=== PATIENT | female | born 1945 | race Caucasian/White ===

== ENCOUNTER 2021-06-20 12:37 | Observation (INO) | payer OTHER ==
[2021-06-20] VITALS (9 sets, daily range): BP systolic 102–179; BP diastolic 45–74
[~2021-06-20] VITALS: Ht 157.5 cm; Wt 69.0 kg
[~2021-06-20 12:37] MED LIST: TOBRAMYCIN0.3 % OP
--- NOTE | 2021-06-20 13:00 | NUR ---
PATIENT TO ROOM 9 AMBUALTORY BEDSIDE TRIAGE COMPLETED
--- NOTE | 2021-06-20 14:00 | NUR ---
Reassessment of patient completed. No distress noted.
[2021-06-20 14:06] LABS: HEMATOCRIT 41.8 % (37.0-47.0); HEMOGLOBIN 14.2 g/dl (12.0-16.0); IMMATURE GRANULOCYTES 0.2 % (0.0-5.0); MEAN CELL VOLUME 88.9 fL CALC (80.0-100.0); MEAN CORPUSCULAR HGB 30.2 pG CALC (26.0-32.0); NEUT# 4.31 thou/uL (2.00-7.15); RED BLOOD COUNT 4.7 mill/uL (4.20-5.60); RED CELL DISTRI WIDTH 12.9 % (11.5-15.5)
[2021-06-20 14:11] LABS: ALBUMIN 4.7 g/dL (3.2-5.0); ALKALINE PHOSPHATASE 66 u/l (38-126); ANION GAP 14 (6-22 (CALC)); BILIRUBIN, TOTAL 0.6 mg/dL (0.0-1.4); BUN 15 mg/dL (8-23); BUN/CREATININE RATIO 20 (12-20 (CALC)); CARBON DIOXIDE 29 mmol/l (22-30); CHLORIDE 97 mmol/l (95-108); CREATININE 0.8 mg/dL (0.5-1.0); GFR > 60 ML/MIN (>=60 (CALC)); GFR FOR AFR.AMER. > 60 ML/MIN (>=60 (CALC)); POTASSIUM 3.8 mmol/l (3.5-5.1); SGOT/AST 28 u/l (9-36); SODIUM 135 mmol/l (137-146); TOTAL PROTEIN 8.5 g/dL (6.3-8.2)
--- NOTE | 2021-06-20 15:00 | NUR ---
Reassessment of patient completed. No distress noted.
--- NOTE | 2021-06-20 16:00 | NUR ---
Reassessment of patient completed. No distress noted.
--- NOTE | 2021-06-20 17:15 | NUR ---
Reassessment of patient completed. No distress noted.
--- NOTE | 2021-06-20 18:22 | NUR ---
Reassessment of patient completed. No distress noted.
--- NOTE | 2021-06-20 19:00 | NUR ---
Admission Note Report Given to: Transported by: Wheelchair X Stretcher Transported with: X Nurse Transporter X Patent IV O2 X Automation And Controls Instructor Location: X ICU MS2
--- NOTE | 2021-06-20 19:08 | NUR ---
75 yr old white female admitted icu7 per stretcher from er. denies mccain. amb self to bed. bed weight obtained. telemetry monitor shows sinus rhythm hr 80. #20 rac saline lock. history obtained per pt. oriented to room. fall precautions initiated.
--- NOTE | 2021-06-20 21:30 | NUR ---
abdiel from the [employer] called this global technical writer. updated on pts condition.
[2021-06-21] VITALS (8 sets, daily range): BP systolic 105–133; BP diastolic 46–67
--- NOTE | 2021-06-21 00:01 | NUR ---
eyes closed. no distress. monitor car operator shows sinus rhythm hr 62.
--- NOTE | 2021-06-21 02:00 | NUR ---
resting quietly. resps even & unlabored. no apparent distress.
--- NOTE | 2021-06-21 04:00 | NUR ---
lab here. blood drawn.
[2021-06-21 06:43] LABS: HEMATOCRIT 38.8 % (37.0-47.0); HEMOGLOBIN 13.6 g/dl (12.0-16.0); MEAN CORPUSCULAR HGB 30.2 pG CALC (26.0-32.0); MEAN CORPUSCULAR HGB CONC 35.1 g/dL CAL (32.0-36.0); RED BLOOD COUNT 4.51 mill/uL (4.20-5.60); RED CELL DISTRI WIDTH 12.8 % (11.5-15.5)
--- NOTE | 2021-06-21 06:58 | NUR ---
PT REPORT RECEIVED FROM [employer] SPECIALIST
[2021-06-21 07:12] LABS: ANION GAP 13 (6-22 (CALC)); BUN 20 mg/dL (8-23); BUN/CREATININE RATIO 27 (12-20 (CALC)); CALCULATED LDLCHOLESTEROL 199 mg/dL (62-129 (CALC)); CARBON DIOXIDE 25 mmol/l (22-30); CHLORIDE 99 mmol/l (95-108); CHOLESTEROL HDL RATIO 4.2 (<4.4 (CALC)); CREATININE 0.7 mg/dL (0.5-1.0); GFR > 60 ML/MIN (>=60 (CALC)); GFR FOR AFR.AMER. > 60 ML/MIN (>=60 (CALC)); HDL CHOLESTEROL 71 mg/dL (>=40); SODIUM 133 mmol/l (137-146); TOTAL CHOLESTEROL 298 mg/dl (0-199); TOTAL TRIGLYCERIDES 139 mg/dl (30-149); VLDL CHOLESTROL 28 mg/dl (0-48 (CALC))
[2021-06-21] MEDS ORDERED: IMITREX50 M1 PO (08:55)
--- NOTE | 2021-06-21 09:38 | NUR ---
PT UP TO BATHROOM WITH STEADY GAIT, DENIES ANY COMPLAINTS, ADVISED TO PT THAT SHE WOULD BE DISCHARGED TODAY, STATES SHE WILL LET ME KNOW WHEN SOMEONE WILL BE ABLE TO PICK HER UP
--- NOTE | 2021-06-21 11:15 | NUR ---
PT SLEEPING AT THIS TIME, VITAL SIGNS REMAIN STABLE AND PTS FAMILY IS TO MEDICAL HISTORIAN PT FOR DISCHARGE AFTER LUNCH.
== END 2021-06-21 13:00 | disposition home or self-care (01) | DRG 305 ==
LOC: ED 12:37 → ED-I 15:34 → ED 15:34 → ED-I 15:35 → ED 15:49 → ICU 15:50
PROVIDERS: Family Medicine; Nurse Practitioner; ADMIT Internal Medicine; ATTEND Internal Medicine
DX: I16.0 Hypertensive urgency (principal); G43.919 Migraine, unspecified, intractable, without status migrainosus; Z20.822 Contact with and (suspected) exposure to COVID-19
CPT/HCPCS: J1650